=== PATIENT | female | born 1990 | race Caucasian/White ===

== ENCOUNTER → 2022-02-18 | Outpatient (CLI) | payer BC ==
[~2022-02-18] MED LIST: ACIDOPHILUS1 EAC3 PO; FEROSUL325 MG PO; FLONASE SPRAY; FOLIC ACID1 MG PO; KEPPRA1000 MG PO; PRENATAL VITAMIN PO; PROAIR HFA8.5 GM INH; UBRELVY100 MG PO; VITAMIN C500 M4 PO; VITAMIN D PO; ZYRTEC10 MG PO
[2022-02-18 11:28] LABS: HEMOGLOBIN 13.4 gm/dl (12.3-15.3); RED BLOOD COUNT 4.6 M/UL (4.00-5.10); WHITE BLOOD COUNT 7.7 K/UL (4.5-11.0)
== END ==
LOC: OPSV2 10:30
PROVIDERS: Obstetrics & Gynecology
DX: Z01.812 Encounter for preprocedural laboratory examination (principal); N93.9 Abnormal uterine and vaginal bleeding, unspecified
CPT/HCPCS: 81001; 85025

== ENCOUNTER → 2022-02-25 | Day surgery (SDC) | payer BC ==
[~2022-02-25] MED LIST changes: +HYDROCODON-ACE1 EAC4 PO; +IBUPROFEN600 MG PO; +LORYNA 3 MG-0.1 EACH PO
== END | disposition home or self-care (01) ==
LOC: OR 07:30
DX: D25.9 Leiomyoma of uterus, unspecified (principal); N84.0 Polyp of corpus uteri; J45.909 Unspecified asthma, uncomplicated; G40.909 Epilepsy, unspecified, not intractable, without status epilepticus; E78.5 Hyperlipidemia, unspecified; Z79.899 Other long term (current) drug therapy
CPT/HCPCS: 84702; J1885; J2001; J2250; J2405; J2704; J2795; J3010